=== PATIENT | female | born 1950 | race Caucasian/White ===

== ENCOUNTER 2017-07-05 05:35 | Day surgery (SDC) | payer OTHER ==
[~2017-07-05] VITALS: Ht 162.6 cm; Wt 76.2 kg
[~2017-07-05 05:35] MED LIST: ASPIRIN EC650 MG PO; ASPIRIN81 M2 PO; CALCIUM + D3 E1 EACH PO; ELOCON 0.1% OIN15 GM TP; FISH OIL 1,4001 EACH PO; IBUPROFEN400 MG PO; MULTIPLE VITAM1 EACH PO; NEXIUM20 MG PO; SYNTHROID50 MCG PO; TRICOR145 MG PO
[2017-07-05] MEDS ORDERED: TOPROL XL25 MG PO (05:57)
[2017-07-05 06:00] VITALS: BP 182/84
[2017-07-05 08:55] VITALS: BP 188/82
[2017-07-05 10:00] VITALS: BP 182/81
[2017-07-05 10:29] VITALS: BP 162/74
[2017-07-05 12:49] LABS: BASOPHIL (%) 0.7 % (0-1); BASOPHIL COUNT 0.1 K/uL (0-0.1); EOSINOPHIL (%) 0.7 % (0-5); EOSINOPHIL COUNT 0.1 K/uL (0-0.3); HEMATOCRIT 38.2 % (36.0-46.0); HEMOGLOBIN 12.8 G/DL (11.9-15.5); LYMPHOCYTE (%) 10.6 % (15-42); MCH 30.7 PG (29.0-34.0); MCHC 33.5 G/DL (30.0-36.0); MCV 91.6 FL (83-99); MONOCYTE (%) 2.2 % (3-12); MONOCYTE COUNT 0.2 K/uL (0-0.8); NEUTROPHIL (%) 84.8 % (45-76); NEUTROPHIL COUNT 7.7 K/uL (1.8-6.4); PLATELET COUNT 400 K/uL (156-360); RBC DIS.WIDTH-CV 13.6 % (11.8-14.6); RBC DIS.WIDTH-SD 45.3 % (39-53); RED BLOOD COUNT 4.17 M/uL (3.80-5.20); WHITE BLOOD COUNT 9.1 K/uL (4.1-10.2)
== END 2017-07-05 10:30 | disposition home or self-care (01) ==
LOC: SDC 05:35
PROVIDERS: Obstetrics & Gynecology Gynecologic Oncology
PROC: 0UDB8ZX Extraction of Endometrium, Via Natural or Artificial Opening Endoscopic, Diagnostic (ICD-10-PCS; principal; 2017-07-05)
DX: N85.8 Other specified noninflammatory disorders of uterus (principal); R94.31 Abnormal electrocardiogram [ECG] [EKG]; E78.5 Hyperlipidemia, unspecified; R03.0 Elevated blood-pressure reading, without diagnosis of hypertension; I49.3 Ventricular premature depolarization; E03.9 Hypothyroidism, unspecified
CPT/HCPCS: 85025; 85025 91; 88305; J0131; J0690; J1100; J1885; J2250; J2405; J3010